=== PATIENT | female | born 1960 | race Caucasian/White ===

== ENCOUNTER 2020-02-01 09:42 | Outpatient (CLI) | payer OTHER ==
[2020-02-01] MEDS ORDERED: OMNIPAQUE 350 MG/ML, 100ML BOTTLE ONE (13:34)
== END 2020-02-01 23:59 | disposition home or self-care (01) ==
LOC: CFH 09:42
PROVIDERS: ATTEND Internal Medicine Hematology & Oncology
DX: C67.9 Malignant neoplasm of bladder, unspecified (principal)
CPT/HCPCS: 71260; Q9967

== ENCOUNTER → 2020-05-30 | Outpatient (CLI) | payer OTHER ==
[~2020-05-30] MED LIST: OMNIPAQUE 350 MG/ML, 75ML BOTTLE ONE
== END | disposition home or self-care (01) ==
LOC: CFH 08:36 → EDSTATUS 09:00
PROVIDERS: ATTEND Internal Medicine Hematology & Oncology
DX: C67.9 Malignant neoplasm of bladder, unspecified (principal); C79.51 Secondary malignant neoplasm of bone; R91.8 Other nonspecific abnormal finding of lung field; M43.8X4 Other specified deforming dorsopathies, thoracic region
CPT/HCPCS: 71260; Q9967

== ENCOUNTER → 2020-07-10 | Outpatient (CLI) | payer OTHER | END | disposition home or self-care (01) | LOC: ROC 09:08 | PROVIDERS: ATTEND Radiology Radiation Oncology | DX: C79.11 Secondary malignant neoplasm of bladder (principal); C78.01 Secondary malignant neoplasm of right lung; M87.850 Other osteonecrosis, pelvis | CPT/HCPCS: 99214; G0463 ==

== ENCOUNTER → 2020-11-21 | Outpatient (CLI) | payer OTHER | END | disposition home or self-care (01) | LOC: CFH 08:25 | PROVIDERS: ATTEND Internal Medicine Hematology & Oncology | DX: C67.9 Malignant neoplasm of bladder, unspecified (principal); J98.19 Other pulmonary collapse; J98.4 Other disorders of lung; J98.11 Atelectasis; M48.54XA Collapsed vertebra, not elsewhere classified, thoracic region, initial encounter for fracture | CPT/HCPCS: 71260; Q9967 ==

== ENCOUNTER 2020-12-04 08:00 | Outpatient (CLI) | payer OTHER | END 2020-12-04 23:59 | disposition home or self-care (01) | LOC: ROC 08:00 | PROVIDERS: ATTEND Radiology Radiation Oncology | DX: Z08 Encounter for follow-up examination after completed treatment for malignant neoplasm (principal); C67.9 Malignant neoplasm of bladder, unspecified | CPT/HCPCS: 99213; G0463 ==

== ENCOUNTER 2021-02-20 10:33 | Outpatient (CLI) | payer OTHER ==
[2021-02-20] MEDS ORDERED: OMNIPAQUE 350 MG/ML, 100ML BOTTLE ONE (11:20)
== END 2021-02-20 23:59 | disposition home or self-care (01) ==
LOC: CFH 10:33
PROVIDERS: ATTEND Radiology Radiation Oncology
DX: C67.9 Malignant neoplasm of bladder, unspecified (principal); R91.8 Other nonspecific abnormal finding of lung field; J90 Pleural effusion, not elsewhere classified; M85.88 Other specified disorders of bone density and structure, other site; N13.30 Unspecified hydronephrosis; J98.19 Other pulmonary collapse; M48.54XA Collapsed vertebra, not elsewhere classified, thoracic region, initial encounter for fracture; J98.11 Atelectasis
CPT/HCPCS: 71260; 74177; Q9967

== ENCOUNTER 2021-03-06 07:21 | Outpatient (CLI) | payer OTHER | END 2021-03-06 23:59 | disposition home or self-care (01) | LOC: ROC 07:21 | PROVIDERS: ATTEND Radiology Radiation Oncology | DX: C67.9 Malignant neoplasm of bladder, unspecified (principal); C78.01 Secondary malignant neoplasm of right lung; C78.02 Secondary malignant neoplasm of left lung | CPT/HCPCS: 99212; G0463 ==

== ENCOUNTER → 2021-05-29 | Outpatient (CLI) | payer OTHER ==
[~2021-05-29] MED LIST changes: +OMNIPAQUE 350 MG/ML, 150 ML BOTTLE ONE; -OMNIPAQUE 350 MG/ML, 75ML BOTTLE ONE
== END | disposition home or self-care (01) ==
LOC: CFH 10:17
PROVIDERS: ATTEND Internal Medicine Hematology & Oncology
DX: C67.9 Malignant neoplasm of bladder, unspecified (principal); R91.8 Other nonspecific abnormal finding of lung field; J98.19 Other pulmonary collapse; J98.4 Other disorders of lung
CPT/HCPCS: 71260; 74178; Q9967